=== PATIENT | male | born 1935 | race Caucasian/White ===

== ENCOUNTER → 2016-08-14 | Outpatient (CLI) | payer MEDICARE, BC | END | disposition home or self-care (01) | LOC: MW.CHUR 13:18 | PROVIDERS: ATTEND Urology | DX: N40.0 Benign prostatic hyperplasia without lower urinary tract symptoms (principal); N42.9 Disorder of prostate, unspecified; R97.20 Elevated prostate specific antigen [PSA] | CPT/HCPCS: 36415; 84153; G0463 ==

== ENCOUNTER 2016-09-18 11:36 | Inpatient (IN) | payer MEDICARE, BC ==
[2016-09-18] MEDS ORDERED: Sodium Chloride 0.9% 1,000 ML IV ONE (12:17)
--- NOTE | 2016-09-18 12:17 | EDM.PDOC ---
ED HPI GENERAL MEDICAL PROBLEM - General Chief Complaint: Gastrointestinal Problem Stated Complaint: WEAK Time Seen by Provider: 09/18/16 12:00 Source of Information: Reports: Patient History Limitations: Reports: No limitations - History of Present Illness INITIAL COMMENTS - FREE TEXT/NARRATIVE: History of present illness: [81-year-old male presenting with complaints of generalized weakness, and dark tarry stools patient indicated he been constant for several days and now when he had a stool it was very dark and he is concerned.] Review of systems: As per history of present illness and below otherwise all systems reviewed and negative. Past medical history: As per history of present illness and as reviewed below otherwise noncontributory. Surgical history: As per history of present illness and as reviewed below otherwise noncontributory. Social history: No reported history of drug or alcohol abuse. Family history: As per history of present illness and as reviewed below otherwise noncontributory. Physical exam: HEENT: Atraumatic, normocephalic, pupils reactive, negative for conjunctival pallor or scleral icterus, mucous membranes moist, throat clear, neck supple, nontender, trachea midline. Lungs: Clear to auscultation, breath sounds equal bilaterally, chest nontender. Heart: S1S2, regular, negative for clicks, rubs, or JVD. Abdomen: Soft, nondistended, nontender. Negative for masses or hepatosplenomegaly. Negative for costovertebral tenderness. Pelvis: Stable nontender. Genitourinary: Deferred. Rectal: Deferred. Extremities: Atraumatic, negative for cords or calf pain. Neurovascular unremarkable. Neuro: Awake, alert, oriented. Cranial nerves II through XII unremarkable. Cerebellum unremarkable. Motor and sensory unremarkable throughout. Exam nonfocal. Patients overall assessment appears benign save for a feeling of fatigue and global weakness. Rectal exam at bedside Guiac HEME positive Diagnostics: [CBC, CMP, INR, guaiac at bedside, EKG, chest x-ray] Therapeutics: [IV fluid, type for 2 units, protonic IV push, protonic] Impression: [GI bleed] Plan: [Admit to ICU to with consult to Dr. Fortune] Definitive disposition and diagnosis as appropriate pending reevaluation and review of above. - Related Data Allergies Allergy/AdvReac Type Severity Reaction Status Date / Time No Known Allergies Allergy Verified 09/18/16 11:44 Home Meds: Home Meds Aspirin [Adult Low Dose Aspirin EC] 81 mg PO DAILY 10/24/13 [History] Clopidogrel [Plavix] 75 mg PO DAILY 10/24/13 [History] Folic Acid 1 mg PO DAILY 10/24/13 [History] Hydrochlorothiazide 25 mg PO BEDTIME 10/24/13 [History] Ramipril [Altace] 5 mg PO BEDTIME 10/24/13 [History] atorvaSTATin [Lipitor] 20 mg PO BEDTIME 10/24/13 [History] Levothyroxine [Synthroid] 5 mg PO ACBRK 03/22/14 [History] Potassium Chloride 20 meq PO BRK 06/21/14 [History] Past Medical History Other HEENT History: pat hearing aids, wears glasses Cardiovascular History: Reports: High cholesterol, Hypertension Other Dermatologic History: occasional rash - Infectious Disease History Infectious Disease History: Reports: Chicken pox, Measles - Past Surgical History Male Surgical History: Reports: Prostatectomy Other Male Surgeries/Procedures: hx ureterostomy for insertion of stent Other Musculoskeletal Surgeries/Procedures:: hx foot surgery Social & Family History - Family History Family Medical History: Noncontributory - Tobacco Use Smoking Status *Q: Light Tobacco Smoker Years of Tobacco use: 60 Packs/Tins Daily: 0.5 - Alcohol Use Days Per Week of Alcohol Use: 0 Number of Drinks Per Day: 0 Total Drinks Per Week: 0 - Recreational Drug Use Recreational Drug Use: No Drug Use in Last 12 Months: No ED ROS GENERAL - Review of Systems Review Of Systems: See Below (See history of present illness) ED EXAM, GENERAL - Physical Exam Exam: See Below (See history of present illness) Course - Vital Signs Last Recorded V/S: Last Vital Signs Temp 36.7 C 09/18/16 11:46 Pulse 86 09/18/16 12:55 Resp 16 09/18/16 12:55 BP 118/59 L 09/18/16 12:55 Pulse Ox 96 09/18/16 12:55 - Orders/Labs/Meds Orders: Active Orders 24 hr Category Date Time Status Patient Status [ADT] Stat ADT 09/18/16 13:31 Ordered EKG 12 Lead [EKG Documentation Completion] [RC] STAT Care 09/18/16 12:49 Active INR,PT,PROTHROMBIN TIME [COAG] Stat Lab 09/18/16 13:31 Ordered RED BLOOD CELLS LP [BBK] Stat Lab 09/18/16 12:50 Ordered TYPE AND SCREEN [BBK] Stat Lab 09/18/16 12:27 Received UA W/MICROSCOPIC [URIN] Stat Lab 09/18/16 12:17 Uncollected Pantoprazole [ProTONIX IV] 80 mg Med 09/18/16 13:30 Ordered Sodium Chloride 0.9% [Normal Saline] 100 ml IV .Continuous Medication Orders Pantoprazole Sodium 80 mg/ (Sodium Chloride) 100 mls @ 10 mls/hr IV .Continuous TIM Labs: Laboratory Tests 09/18/16 09/18/16 Range/Units 12:22 12:27 WBC 6.33 (4.0-11.0) K/uL RBC 1.85 L (4.50-5.90) M/uL Hgb 5.4 L (13.0-17.0) g/dL Hct 17.0 L (38.0-50.0) % MCV 91.9 (80.0-98.0) fL MCH 29.2 (27.0-32.0) pg MCHC 31.8 (31.0-37.0) g/dL RDW Std Deviation 51.5 (28.0-62.0) fl RDW Coeff of Madeline 16 H (11.0-15.0) % Plt Count 265 (150-400) K/uL MPV 8.10 (7.40-12.00) fL Neut % (Auto) 72.5 (48.0-80.0) % Lymph % (Auto) 15.6 L (16.0-40.0) % Coles % (Auto) 9.5 (0.0-15.0) % Eos % (Auto) 1.9 (0.0-7.0) % Baso % (Auto) 0.5 (0.0-1.5) % Neut # (Auto) 4.6 (1.4-5.7) K/uL Lymph # (Auto) 1.0 (0.6-2.4) K/uL Coles # (Auto) 0.6 (0.0-0.8) K/uL Eos # (Auto) 0.1 (0.0-0.7) K/uL Baso # (Auto) 0.0 (0.0-0.1) K/uL Nucleated RBC % 0.0 /100WBC Nucleated RBCs # 0 K/uL Sodium 136 (136-146) mmol/L Potassium 3.5 (3.5-5.1) mmol/L Chloride 104 (98-110) mmol/L Carbon Dioxide 23 (21-31) mmol/L BUN 19 (6.0-23.0) mg/dL Creatinine 1.0 (0.6-1.5) mg/dL Est Cr Clr Drug Dosing 52.28 mL/min Estimated GFR (MDRD) > 60.0 ml/min Glucose 93 (60-110) mg/dL Calcium 8.4 L (8.8-10.8) mg/dL Total Bilirubin 0.3 (0.1-1.5) mg/dL AST 14 (5-40) IU/L ALT 14 (8-54) IU/L Alkaline Phosphatase 70 (40-150) Total Protein 5.9 L (6.0-8.0) g/dL Albumin 3.6 (3.4-4.8) g/dL Globulin 2.3 (2.0-3.5) g/dL Albumin/Globulin Ratio 1.6 (1.3-2.8) Amylase 77 (10-90) U/L Lipase 62 (7-80) U/L Meds: Medications Generic Name Dose Route Start Last Admin Trade Name Freq PRN Reason Stop Dose Admin Pantoprazole Sodium 80 mg/ 100 mls @ 10 mls/hr 09/18/16 13:30 Sodium Chloride IV .Continuous TIM Discontinued Medications Generic Name Dose Route Start Last Admin Trade Name Freq PRN Reason Stop Dose Admin Sodium Chloride 1,000 mls @ 999 mls/hr 09/18/16 12:17 09/18/16 12:55 Normal Saline IV 09/18/16 13:17 750 mls/hr .Bolus ONE Administration Pantoprazole Sodium 40 mg/ 10 mls @ 300 mls/hr 09/18/16 13:30 Sodium Chloride IVPUSH 09/18/16 13:31 NOW ONE Departure - Departure Time of Disposition: 13:37 Disposition: Admitted As Inpatient 66 Condition: good Clinical Impression: Bleeding Forms: ED Department Discharge - My Orders Last 24 Hours: My Active Orders 09/18/16 12:17 UA W/MICROSCOPIC [URIN] Stat 09/18/16 12:27 TYPE AND SCREEN [BBK] Stat 09/18/16 12:50 RED BLOOD CELLS LP [BBK] Stat 09/18/16 13:30 Pantoprazole [ProTONIX IV] 80 mg Sodium Chloride 0.9% [Normal Saline] 100 ml IV .Continuous 09/18/16 13:31 Patient Status [ADT] Stat INR,PT,PROTHROMBIN TIME [COAG] Stat - Assessment/Plan Last 24 Hours: My Active Orders 09/18/16 12:17 UA W/MICROSCOPIC [URIN] Stat 09/18/16 12:27 TYPE AND SCREEN [BBK] Stat 09/18/16 12:50 RED BLOOD CELLS LP [BBK] Stat 09/18/16 13:30 Pantoprazole [ProTONIX IV] 80 mg Sodium Chloride 0.9% [Normal Saline] 100 ml IV .Continuous 09/18/16 13:31 Patient Status [ADT] Stat INR,PT,PROTHROMBIN TIME [COAG] Stat
[2016-09-18 13:03] LABS: CHLORIDE,CL 104 mmol/L (98-110); SODIUM,NA 136 mmol/L (136-146)
[2016-09-18] MEDS ORDERED: Pantoprazole 40 MG in Sodium Chloride 0.9% 10 ML IVPUSH ONE (13:30)
[2016-09-18] MEDS ORDERED: Pantoprazole 80 MG in Sodium Chloride 0.9% 100 ML IV SCH (13:30)
--- NOTE | 2016-09-18 14:20 | PCM.HP ---
H&P History of Present Illness - General Date of Service: 09/18/16 Admit Problem/Dx: Admission Diagnosis/Problem Admission Diagnosis/Problem Gastrointestinal hemorrhage Source of Information: Patient, Family, Provider, RN - History of Present Illness Initial Comments - Free Text/Narative: Gentleman presented to the emergency department he does of about 10 days of progressive weakness. He's felt a little short of breath. During this time he also noted that his stool was black. He did not have any abdominal pain. He thought he was constipated. He took a laxative and had 2 bowel movements this morning. He still felt very weak. He has no known history of prior gastrointestinal bleeding. He's never had any type of cancer to his knowledge. 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 He states he's had no recurrence of neurologic deficit since that time. He states his "mini stroke" was characterized by transient problems with memory. - Related Data Allergies/Adverse Reactions: Allergies Allergy/AdvReac Type Severity Reaction Status Date / Time No Known Allergies Allergy Verified 09/18/16 11:44 Home Medications: Home Meds Aspirin [Adult Low Dose Aspirin EC] 81 mg PO DAILY 10/24/13 [History] Clopidogrel [Plavix] 75 mg PO DAILY 10/24/13 [History] Folic Acid 1 mg PO DAILY 10/24/13 [History] Hydrochlorothiazide 25 mg PO BEDTIME 10/24/13 [History] Ramipril [Altace] 5 mg PO BEDTIME 10/24/13 [History] atorvaSTATin [Lipitor] 20 mg PO BEDTIME 10/24/13 [History] Levothyroxine [Synthroid] 5 mg PO ACBRK 03/22/14 [History] Potassium Chloride 20 meq PO BRK 06/21/14 [History] Past Medical History Other HEENT History: pat hearing aids, wears glasses Cardiovascular History: Reports: High cholesterol, Hypertension. Denies: Afib, Angina, CAD, Heart Failure, [place], Prior cardiac arrest, PTCA, Stents Respiratory History: Denies: COPD Gastrointestinal History: Denies: Cirrhosis Genitourinary History: Reports: Prostate disorder, Renal calculus Neurological History: Reports: TIA Endocrine/Metabolic History: Denies: Judson's disease, Diabetes, type I, Diabetes, type II Hematologic History: Denies: Anemia Oncologic (Cancer) History: Reports: None Other Dermatologic History: occasional rash - Infectious Disease History Infectious Disease History: Reports: Chicken pox, Measles - Past Surgical History Male Surgical History: Reports: Prostatectomy Other Male Surgeries/Procedures: hx ureterostomy for insertion of stent Other Musculoskeletal Surgeries/Procedures:: hx foot surgery Social & Family History - Family History Family Medical History: Noncontributory - Tobacco Use Tobacco Use Within Last Twelve Months: Smokeless Tobacco Years of Tobacco use: 60 Packs/Tins Daily: 0.5 - Alcohol Use Days Per Week of Alcohol Use: 0 Number of Drinks Per Day: 0 Total Drinks Per Week: 0 Alcohol Use in Last Twelve Months: No - Recreational Drug Use Recreational Drug Use: No Drug Use in Last 12 Months: No H&P Review of Systems - Review of Systems: Review Of Systems: See Below General: Reports: weakness, fatigue. Denies: fever, chills HEENT: Denies: dysphasia Pulmonary: Reports: Shortness of Breath. Denies: Wheezing, Cough, Sputum Cardiovascular: Denies: chest pain, edema Gastrointestinal: Reports: Black stool, Melena. Denies: Abdominal pain, Anorexia, Bloody stool, Hematemesis, Hematochezia, Vomiting Genitourinary: Denies: dysuria, hematuria Skin: Denies: cyanosis Neurological: Denies: Pre-Existing Deficit, Seizure Immunologic: Denies: anaphylaxis Exam - Exam Exam: See Below - Vital Signs Vital Signs: Last Vital Signs Temp 98.0 F 09/18/16 11:46 Pulse 86 09/18/16 12:55 Resp 16 09/18/16 12:55 BP 118/59 L 09/18/16 12:55 Pulse Ox 96 09/18/16 12:55 Weight: 83.915 kg - Exam General: alert, oriented, cooperative. No: mild distress, moderate distress HEENT: Other (Pale conjunctiva) Neck: supple, trachea midline Lungs: Clear to auscultation, Normal respiratory effort. No: Crackles, Rales, Rhonchi Cardiovascular: regular rate, regular rhythm, normal S2, systolic murmur Abdomen: soft. No: tenderness Rectal (Males) Exam: Other (Rectal exam by emergency room provide your revealed heme positive stool and no anal or perirectal masses.) Extremities: No: edema Neurological: cranial nerves intact, normal speech Neuro Extensive - Mental Status: normal cognition Psychiatric: normal mood. No: agitated - Patient Data Lab Results last 24 hrs: Laboratory Results - last 24 hr 09/18/16 09/18/16 09/18/16 Range/Units 12:22 12:27 12:27 WBC 6.33 (4.0-11.0) K/uL RBC 1.85 L (4.50-5.90) M/uL Hgb 5.4 L (13.0-17.0) g/dL Hct 17.0 L (38.0-50.0) % MCV 91.9 (80.0-98.0) fL MCH 29.2 (27.0-32.0) pg MCHC 31.8 (31.0-37.0) g/dL RDW Std Deviation 51.5 (28.0-62.0) fl RDW Coeff of Madeline 16 H (11.0-15.0) % Plt Count 265 (150-400) K/uL MPV 8.10 (7.40-12.00) fL Neut % (Auto) 72.5 (48.0-80.0) % Lymph % (Auto) 15.6 L (16.0-40.0) % Jennings % (Auto) 9.5 (0.0-15.0) % Eos % (Auto) 1.9 (0.0-7.0) % Baso % (Auto) 0.5 (0.0-1.5) % Neut # (Auto) 4.6 (1.4-5.7) K/uL Lymph # (Auto) 1.0 (0.6-2.4) K/uL Jennings # (Auto) 0.6 (0.0-0.8) K/uL Eos # (Auto) 0.1 (0.0-0.7) K/uL Baso # (Auto) 0.0 (0.0-0.1) K/uL Nucleated RBC % 0.0 /100WBC Nucleated RBCs # 0 K/uL INR (0.86-1.11) Sodium 136 (136-146) mmol/L Potassium 3.5 (3.5-5.1) mmol/L Chloride 104 (98-110) mmol/L Carbon Dioxide 23 (21-31) mmol/L BUN 19 (6.0-23.0) mg/dL Creatinine 1.0 (0.6-1.5) mg/dL Est Cr Clr Drug Dosing 52.28 mL/min Estimated GFR (MDRD) > 60.0 ml/min Glucose 93 (60-110) mg/dL Calcium 8.4 L (8.8-10.8) mg/dL Total Bilirubin 0.3 (0.1-1.5) mg/dL AST 14 (5-40) IU/L ALT 14 (8-54) IU/L Alkaline Phosphatase 70 (40-150) Total Protein 5.9 L (6.0-8.0) g/dL Albumin 3.6 (3.4-4.8) g/dL Globulin 2.3 (2.0-3.5) g/dL Albumin/Globulin Ratio 1.6 (1.3-2.8) Amylase 77 (10-90) U/L Lipase 62 (7-80) U/L Blood Type O POSITIVE Antibody Screen NEGATIVE Crossmatch See Detail 09/18/16 Range/Units 12:27 WBC (4.0-11.0) K/uL RBC (4.50-5.90) M/uL Hgb (13.0-17.0) g/dL Hct (38.0-50.0) % MCV (80.0-98.0) fL MCH (27.0-32.0) pg MCHC (31.0-37.0) g/dL RDW Std Deviation (28.0-62.0) fl RDW Coeff of Madeline (11.0-15.0) % Plt Count (150-400) K/uL MPV (7.40-12.00) fL Neut % (Auto) (48.0-80.0) % Lymph % (Auto) (16.0-40.0) % Jennings % (Auto) (0.0-15.0) % Eos % (Auto) (0.0-7.0) % Baso % (Auto) (0.0-1.5) % Neut # (Auto) (1.4-5.7) K/uL Lymph # (Auto) (0.6-2.4) K/uL Jennings # (Auto) (0.0-0.8) K/uL Eos # (Auto) (0.0-0.7) K/uL Baso # (Auto) (0.0-0.1) K/uL Nucleated RBC % /100WBC Nucleated RBCs # K/uL INR 0.99 (0.86-1.11) Sodium (136-146) mmol/L Potassium (3.5-5.1) mmol/L Chloride (98-110) mmol/L Carbon Dioxide (21-31) mmol/L BUN (6.0-23.0) mg/dL Creatinine (0.6-1.5) mg/dL Est Cr Clr Drug Dosing mL/min Estimated GFR (MDRD) ml/min Glucose (60-110) mg/dL Calcium (8.8-10.8) mg/dL Total Bilirubin (0.1-1.5) mg/dL AST (5-40) IU/L ALT (8-54) IU/L Alkaline Phosphatase (40-150) Total Protein (6.0-8.0) g/dL Albumin (3.4-4.8) g/dL Globulin (2.0-3.5) g/dL Albumin/Globulin Ratio (1.3-2.8) Amylase (10-90) U/L Lipase (7-80) U/L Blood Type Antibody Screen Crossmatch Result Diagrams: 09/18/16 12:27 09/18/16 12:22 *Q Meaningful Use (ADM) - VTE *Q VTE Criteria *Q: - Stroke *Q Stroke Criteria *Q: - AMI *Q AMI Criteria *Q: Problem List Initiated/Reviewed/Updated: Yes Orders Last 24hrs: Active Orders 24 hr Category Date Time Status Patient Status [ADT] Stat ADT 09/18/16 13:31 Active EKG 12 Lead [EKG Documentation Completion] [RC] STAT Care 09/18/16 12:49 Active Chest 2V [CR] Stat Exams 09/18/16 13:35 Ordered RED BLOOD CELLS LP [BBK] Stat Lab 09/18/16 12:27 Results TYPE AND SCREEN [BBK] Stat Lab 09/18/16 12:27 Results UA W/MICROSCOPIC [URIN] Stat Lab 09/18/16 12:17 Uncollected Pantoprazole [ProTONIX IV] 80 mg Med 09/18/16 13:30 Active Sodium Chloride 0.9% [Normal Saline] 100 ml IV .Continuous Transfuse RBC [Transfuse Red Blood Cells] [COMM] Stat Oth 09/18/16 13:44 Ordered Medication Orders Pantoprazole Sodium 80 mg/ (Sodium Chloride) 100 mls @ 10 mls/hr IV .Continuous TIM Assessment/Plan Comment:: Melena with symptomatic anemia. Will admit to intensive care unit and transfuse. Emergency room staff advised me that general surgery has been consulted through the emergency department.
[2016-09-18] MEDS ORDERED: Bisacodyl 5 MG Tab PO PRN (14:35)
[2016-09-18] MEDS ORDERED: Morphine 2 MG/ML Syringe IVPUSH PRN (14:35)
[2016-09-18] MEDS ORDERED: Acetaminophen 325 MG Tab PO PRN (14:35)
[2016-09-18] MEDS ORDERED: Ondansetron 4 MG Tab.DIS PO PRN (14:35)
[2016-09-18] MEDS ORDERED: Temazepam 15 MG Cap PO PRN (14:35)
[2016-09-18] MEDS ORDERED: Furosemide 40 MG/4 ML VIAL IVPUSH ONE (14:44)
[2016-09-18] MEDS: Pantoprazole 80 MG in Sodium Chloride 0.9% 100 ML IV SCH (15:42)
--- NOTE | 2016-09-18 16:20 | PCM.SN ---
- Free Text/Narrative Note: Sorin barrios requests surgery consultation either with Dr. Castro or Dr. Huang. I spoke with Dr. Rossi by phone she is on vacation presently Dr. Castro is etl application developer tomorrow. I spoke with Dr. Fortune who I consulted originally and advised her that I would be consulting Dr. Castro, as per family request, in the morning.
--- NOTE | 2016-09-18 16:44 | CR ---
EXAM DATE: 09/18/16 PATIENT'S AGE: 81 Patient: FLY NATH Facility: [place], [place] Site . Site : [id number] Study: XRay Chest [id number]/30/2017 3:06:18 PM Ordering Physician: Doctor Gonzalse Final Report: INDICATION: PAIN,SOB 2 View Chest. Findings: The lungs are clear. Pulmonary vascularity, mediastinum and cardiac silhouette are within normal limits. No effusions and no pneumothorax. Osseous structures appear unremarkable. Impression: No evidence of acute cardiopulmonary disease. Dictated by: Isael Hernandez MD @ 09/18/2016 15:15:10 (Electronic Signature) Report Signed by Proxy and Original Signed Document filed in the Medical Record. MTDD
[2016-09-18] MEDS: atorvaSTATin 20 MG Tab PO SCH (21:29)
[2016-09-18] MEDS: Docusate Sodium 100 MG Cap PO SCH (21:29)
[2016-09-19] MEDS: Pantoprazole 80 MG in Sodium Chloride 0.9% 100 ML IV SCH ×3 (01:02→21:28)
[2016-09-19 05:59] LABS: CHLORIDE,CL 106 mmol/L (98-110); SODIUM,NA 139 mmol/L (136-146)
[2016-09-19] MEDS: Levothyroxine 75 MCG Tab PO SCH (06:31)
[2016-09-19] MEDS ORDERED: Calcium Carbonate 500 MG Tab.Chew PO ONE (08:00)
[2016-09-19] MEDS: Docusate Sodium 100 MG Cap PO SCH ×2 (09:19→20:32)
[2016-09-19] MEDS: Levofloxacin/Dextrose 5%-Water 500 MG in Premix Bag 1 BAG IV SCH (09:19)
[2016-09-19] MEDS: Folic Acid 1 MG Tab PO SCH (09:19)
--- NOTE | 2016-09-19 11:47 | PCM.PN ---
[id number] Dx/Problem (Free Text): Admission Diagnosis/Problem Admission Diagnosis/Problem Gastrointestinal hemorrhage Subjective Update: Patient feeling more energy today. No pain, breathing well. No diarrhea or loose stools. Some constipation. Eating well. No urinary retention. Does admit to history of kidney stones in the past after reminds him. Functional Status: Reports: pain controlled, tolerating diet, incentive spirometry - Review of Systems General: Reports: Weakness, Fatigue. Denies: Fever, Malaise, Chills HEENT: Denies: sinus congestion Pulmonary: Denies: shortness of breath, pleuritic chest pain, wheezing Cardiovascular: Denies: Chest Pain, Palpitations, Edema Gastrointestinal: Reports: Constipation. Denies: Abdominal pain Genitourinary: Denies: dysuria, hematuria, flank pain Musculoskeletal: Denies: neck pain, leg pain Skin: Denies: cyanosis Neurological: Denies: Confusion, Dizziness, Headache Psychiatric: Denies: confusion - Patient Data Vitals - most recent: Last Vital Signs Temp 37.1 C 09/19/16 08:00 Pulse 74 09/19/16 09:00 Resp 18 09/19/16 11:00 BP 124/55 L 09/19/16 11:00 Pulse Ox 97 09/19/16 11:00 Weight - most recent: 83.6 kg I&O - last 24 hours: Intake & Output 09/18/16 09/19/16 09/19/16 22:59 06:59 14:59 Intake Total 260 1536 Output Total 2650 Balance 260 -1114 Lab Results last 24 hrs: Laboratory Results - last 24 hr 09/18/16 09/18/16 09/19/16 Range/Units 17:20 21:59 05:18 WBC 6.39 5.79 (4.0-11.0) K/uL RBC 2.52 L 2.60 L (4.50-5.90) M/uL Hgb 7.3 L 7.5 L (13.0-17.0) g/dL Hct 22.4 L 23.3 L (38.0-50.0) % MCV 88.9 89.6 (80.0-98.0) fL MCH 29.0 28.8 (27.0-32.0) pg MCHC 32.6 32.2 (31.0-37.0) g/dL RDW Std Deviation 50.3 50.5 (28.0-62.0) fl RDW Coeff of Madeline 16 H 16 H (11.0-15.0) % Plt Count 255 244 (150-400) K/uL MPV 8.50 8.60 (7.40-12.00) fL Neut % (Auto) 65.0 (48.0-80.0) % Lymph % (Auto) 21.6 (16.0-40.0) % [place] % (Auto) 7.1 (0.0-15.0) % Eos % (Auto) 5.4 (0.0-7.0) % Baso % (Auto) 0.9 (0.0-1.5) % Neut # (Auto) 3.8 (1.4-5.7) K/uL Lymph # (Auto) 1.3 (0.6-2.4) K/uL [place] # (Auto) 0.4 (0.0-0.8) K/uL Eos # (Auto) 0.3 (0.0-0.7) K/uL Baso # (Auto) 0.1 (0.0-0.1) K/uL Nucleated RBC % 0.0 0.0 /100WBC Nucleated RBCs # 0 0 K/uL Sodium (136-146) mmol/L Potassium (3.5-5.1) mmol/L Chloride (98-110) mmol/L Carbon Dioxide (21-31) mmol/L BUN (6.0-23.0) mg/dL Creatinine (0.6-1.5) mg/dL Est Cr Clr Drug Dosing mL/min Estimated GFR (MDRD) ml/min Glucose (60-110) mg/dL Calcium (8.8-10.8) mg/dL Magnesium (1.5-2.3) mEq/L Urine Color YELLOW Urine Appearance SLT CLOUDY Urine pH 7.0 (5.0-8.0) Ur Specific Oral 1.010 (1.001-1.035) Urine Protein NEGATIVE (NEGATIVE) mg/dL Urine Glucose (UA) NEGATIVE (NEGATIVE) mg/dL Urine Ketones NEGATIVE (NEGATIVE) mg/dL Urine Occult Blood MODERATE (NEGATIVE) Urine Nitrite NEGATIVE (NEGATIVE) Urine Bilirubin NEGATIVE (NEGATIVE) Urine Urobilinogen 0.2 (<2.0) EU/dL Ur Leukocyte Esterase MODERATE (NEGATIVE) Urine RBC 8-12 (0-2/HPF) Urine WBC 5-10 (0-5/HPF) Ur Epithelial Cells FEW (NONE-FEW) Amorphous Sediment MODERATE (NEGATIVE) Urine Bacteria FEW (NEGATIVE) 09/19/16 Range/Units 05:30 WBC (4.0-11.0) K/uL RBC (4.50-5.90) M/uL Hgb (13.0-17.0) g/dL Hct (38.0-50.0) % MCV (80.0-98.0) fL MCH (27.0-32.0) pg MCHC (31.0-37.0) g/dL RDW Std Deviation (28.0-62.0) fl RDW Coeff of Madeline (11.0-15.0) % Plt Count (150-400) K/uL MPV (7.40-12.00) fL Neut % (Auto) (48.0-80.0) % Lymph % (Auto) (16.0-40.0) % [place] % (Auto) (0.0-15.0) % Eos % (Auto) (0.0-7.0) % Baso % (Auto) (0.0-1.5) % Neut # (Auto) (1.4-5.7) K/uL Lymph # (Auto) (0.6-2.4) K/uL [place] # (Auto) (0.0-0.8) K/uL Eos # (Auto) (0.0-0.7) K/uL Baso # (Auto) (0.0-0.1) K/uL Nucleated RBC % /100WBC Nucleated RBCs # K/uL Sodium 139 (136-146) mmol/L Potassium 3.9 (3.5-5.1) mmol/L Chloride 106 (98-110) mmol/L Carbon Dioxide 23 (21-31) mmol/L BUN 16 (6.0-23.0) mg/dL Creatinine 1.1 (0.6-1.5) mg/dL Est Cr Clr Drug Dosing 49.12 mL/min Estimated GFR (MDRD) > 60.0 ml/min Glucose 118 H (60-110) mg/dL Calcium 8.2 L (8.8-10.8) mg/dL Magnesium 1.8 (1.5-2.3) mEq/L Urine Color Urine Appearance Urine pH (5.0-8.0) Ur Specific Oral (1.001-1.035) Urine Protein (NEGATIVE) mg/dL Urine Glucose (UA) (NEGATIVE) mg/dL Urine Ketones (NEGATIVE) mg/dL Urine Occult Blood (NEGATIVE) Urine Nitrite (NEGATIVE) Urine Bilirubin (NEGATIVE) Urine Urobilinogen (<2.0) EU/dL Ur Leukocyte Esterase (NEGATIVE) Urine RBC (0-2/HPF) Urine WBC (0-5/HPF) Ur Epithelial Cells (NONE-FEW) Amorphous Sediment (NEGATIVE) Urine Bacteria (NEGATIVE) Med Orders - Current: Current Medications Acetaminophen (Tylenol) 650 mg PO Q4H PRN PRN Reason: Pain (Mild 1-3)/fever Atorvastatin Calcium (Lipitor) 20 mg PO BEDTIME [facility] Last Admin: 09/18/16 21:29 Dose: 20 mg Bisacodyl (Dulcolax) 5 mg PO DAILY PRN PRN Reason: Constipation Docusate Sodium (Colace) 100 mg PO BID [facility] Last Admin: 09/19/16 09:19 Dose: 100 mg Folic Acid (Folic Acid) 1 mg PO DAILY [facility] Last Admin: 09/19/16 09:19 Dose: 1 mg Pantoprazole Sodium 80 mg/ (Sodium Chloride) 100 mls @ 10 mls/hr IV Q10H [facility] Last Admin: 09/19/16 01:02 Dose: 10 mls/hr Levofloxacin/Dextrose 500 mg/ (Premix) 100 mls @ 100 mls/hr IV Q24H [facility] Last Admin: 09/19/16 09:19 Dose: 100 mls/hr Levothyroxine Sodium (Levothyroxine) 75 mcg PO ACBRK [facility] Last Admin: 09/19/16 06:31 Dose: 75 mcg Morphine Sulfate (Morphine) 2 mg IVPUSH Q2H PRN PRN Reason: Pain (severe 7-10) Stop: 09/19/16 14:40 Ondansetron HCl (Zofran Odt) 4 mg PO Q4H PRN PRN Reason: nausea, able to take PO Temazepam (Restoril) 15 mg PO BEDTIME PRN PRN Reason: Sleep Discontinued Medications Calcium Carbonate/Glycine (Tums) 1,000 mg PO DAILY ONE Stop: 09/19/16 08:01 Last Admin: 09/19/16 09:19 Dose: 1,000 mg Furosemide (Lasix) 40 mg IVPUSH ONCALL ONE Stop: 09/18/16 14:45 Last Admin: 09/18/16 16:59 Dose: 40 mg Sodium Chloride (Normal Saline) 1,000 mls @ 999 mls/hr IV .Bolus ONE Stop: 09/18/16 13:17 Last Admin: 09/18/16 12:55 Dose: 750 mls/hr Pantoprazole Sodium 40 mg/ (Sodium Chloride) 10 mls @ 300 mls/hr IVPUSH NOW ONE Stop: 09/18/16 13:31 Last Admin: 09/18/16 15:30 Dose: 300 mls/hr Pantoprazole Sodium 80 mg/ (Sodium Chloride) 100 mls @ 10 mls/hr IV .Continuous TIM - Exam Quality Assessment: DVT prophylaxis General: alert, oriented, cooperative, no acute distress HEENT: Pupils equal, Pupils reactive, EOMI, Mucous membr. moist/pink Neck: supple, trachea midline Lungs: Clear to auscultation, Normal respiratory effort Cardiovascular: Regular Rate, Regular Rhythm Abdomen: bowel sounds present, soft, no tenderness, no distension, CVA tenderness (right) Back Exam: normal inspection, full range of motion, CVA tenderness (R) Extremities: no edema, normal pulses, no tenderness/swelling, no calf tenderness Peripheral Pulses: 2+: radial (L), radial (R), posterior tibial (L), posterior tibial (R), dorsalis pedis (L), dorsalis pedis (R) Skin: warm, dry, intact Neurological: no new focal deficit Psy/Mental Status: alert, normal affect, normal mood - Problem List & Annotations (1) GI bleed requiring more than 4 units of blood in 24 hours, ICU, or surgery SNOMED Code(s): 51557605 Code(s): K92.2 - GASTROINTESTINAL HEMORRHAGE, UNSPECIFIED Status: Acute Priority: High (2) UTI (urinary tract infection) SNOMED Code(s): 07794624 Code(s): N39.0 - URINARY TRACT INFECTION, SITE NOT SPECIFIED Status: Acute Priority: High Qualifiers: Urinary tract infection type: acute cystitis Hematuria presence: without hematuria Qualified Code(s): N30.00 - Acute cystitis without hematuria - Problem List Review Problem List Initiated/Reviewed/Updated: Yes - My Orders Last 24 Hours: My Active Orders 09/19/16 08:00 Levofloxacin/Dextrose 5%-Water [Levaquin in D5W 500 MG/100 ML] 500 mg Premix Bag 1 bag IV Q24H 09/19/16 10:26 RED BLOOD CELLS LP [BBK] Routine 09/19/16 10:27 Transfuse PRBC [Transfuse Red Blood Cells] [COMM] Routine 09/19/16 10:37 Abdomen Pelvis wo Cont [CT] Routine 09/19/16 10:38 Transfer Patient (Change bed) [ADT] Routine - Plan Plan:: 81 male admitted 09/18/16 for GI bleed with Hgb of 5.5 with pmh of TIA on Plavix and aspirin, htn, hyperlipidemia, and hypothyroidism. GI bleed\Anemia: Hx of Melena for two days previous to admission. No BM overnight, feeling constipated. Transfused 2 units yesterday with good response Hgb 5.5 to 7.5. Still light headed will transfuse 2 more units this AM. On Protonix IV will cont. H-pylori was negative. Dr. Castro, surgery, called and consulted. Do not believe he has an active bleed at this time. Will cont. to monitor. UTI: UA was positive. He did have some right flank pain on physical this am. reports history of kidney stones. Started patient on Levaqin IV and will get CT abd/pelvis for possible stones. Hx of TIA: On plavix and aspirin which will be cont. secondary to high risk and no active bleeding. Hyperlipidemia: Stable Cont. home meds. Hypothyroidism: Stable cont. home meds. Will transfer to floor from ICU as patient has stabilized. VTE: On plavix and aspirin, GI bleed, SCD hold pharmacologic therapy. . <Naveen Aragon O - Last Filed: 09/22/16 14:24> - Patient Data Vitals - most recent: Last Vital Signs Temp 36.9 C 09/21/16 12:00 Pulse 69 09/21/16 12:00 Resp 12 09/21/16 12:00 BP 130/60 09/21/16 12:00 Pulse Ox 95 09/21/16 14:00 I&O - last 24 hours: Intake & Output 09/21/16 09/22/16 09/22/16 22:59 06:59 14:59 Intake Total 3275 Output Total 1570 Balance 1705 Med Orders - Current: Current Medications Discontinued Medications Acetaminophen (Tylenol) 650 mg PO Q4H PRN PRN Reason: Pain (Mild 1-3)/fever Atorvastatin Calcium (Lipitor) 20 mg PO BEDTIME [facility] Last Admin: 09/20/16 20:43 Dose: 20 mg Bisacodyl (Dulcolax) 5 mg PO DAILY PRN PRN Reason: Constipation Calcium Carbonate/Glycine (Tums) 1,000 mg PO DAILY ONE Stop: 09/19/16 08:01 Last Admin: 09/19/16 09:19 Dose: 1,000 mg Docusate Sodium (Colace) 100 mg PO BID [facility] Last Admin: 09/21/16 08:15 Dose: 100 mg Folic Acid (Folic Acid) 1 mg PO DAILY [facility] Last Admin: 09/21/16 08:14 Dose: 1 mg Furosemide (Lasix) 40 mg IVPUSH ONCALL ONE Stop: 09/18/16 14:45 Last Admin: 09/18/16 16:59 Dose: 40 mg Sodium Chloride (Normal Saline) 1,000 mls @ 999 mls/hr IV .Bolus ONE Stop: 09/18/16 13:17 Last Admin: 09/18/16 12:55 Dose: 750 mls/hr Pantoprazole Sodium 40 mg/ (Sodium Chloride) 10 mls @ 300 mls/hr IVPUSH NOW ONE Stop: 09/18/16 13:31 Last Admin: 09/18/16 15:30 Dose: 300 mls/hr Pantoprazole Sodium 80 mg/ (Sodium Chloride) 100 mls @ 10 mls/hr IV .Continuous [facility] Pantoprazole Sodium 80 mg/ (Sodium Chloride) 100 mls @ 10 mls/hr IV Q10H [facility] Last Admin: 09/21/16 13:03 Dose: 10 mls/hr Levofloxacin/Dextrose 500 mg/ (Premix) 100 mls @ 100 mls/hr IV Q24H [facility] Last Admin: 09/21/16 08:14 Dose: 100 mls/hr Levothyroxine Sodium (Levothyroxine) 75 mcg PO ACBRK [facility] Last Admin: 09/21/16 06:43 Dose: 75 mcg Morphine Sulfate (Morphine) 2 mg IVPUSH Q2H PRN PRN Reason: Pain (severe 7-10) Stop: 09/19/16 14:40 Ondansetron HCl (Zofran Odt) 4 mg PO Q4H PRN PRN Reason: nausea, able to take PO Temazepam (Restoril) 15 mg PO BEDTIME PRN PRN Reason: Sleep - My Orders Last 24 Hours: My Active Orders 09/21/16 15:58 Ready for Discharge [RC] PER UNIT ROUTINE - Plan Plan:: I was present with the resident during the history and exam. I discussed the case with the resident and agree with the findings and plan as documented in the resident's note
--- NOTE | 2016-09-19 13:09 | CT ---
CT of the abdomen and pelvis without contrast. HISTORY: CVA tenderness TECHNIQUE: Axial CT images were obtained of the abdomen and pelvis without contrast. Coronal and sag ittal reconstructions obtained. FINDINGS: There is atelectasis and/or scarring within the lung bases. No pleural effusion. The liver, spleen, adrenal glands, and pancreas appear unremarkable for noncontrast examination. The gallbladder appears normal. There is no bulky retroperitoneal lymphadenopathy. No abdominal ascite s. There is a punctate nonobstructing stone within the left kidney. No evidence of obstructive uropathy bilaterally. The large and small bowel are normal in caliber without evidence of obstruction. The appendix appear s normal. There is no bulky pelvic lymphadenopathy. No free fluid. No free air. The urinary bladder appears normal. Moderate prostatomegaly. Degenerative changes are noted within the lumbar spine. IMPRESSION: 1. No acute findings demonstrated within the abdomen or pelvis. 2. Moderate prostatomegaly. 3. Possible punctate nonobstructing left renal stone.
--- NOTE | 2016-09-19 14:07 | PCM.SN ---
<Gerald Issa - Last Filed: 09/19/16 14:06> - Free Text/Narrative Note: CT abdomen/pelvis showed no acute pathology. There was moderate prostamegaly and possible small punctate nonobstructing stone left kidney. <Naveen Aragon - Last Filed: 09/19/16 16:42> - Free Text/Narrative Note: i was present with the resident during the history and exam.I discussed the case with the resident and agree with the findings and plan as documented in the resident's note
--- NOTE | 2016-09-19 14:50 | PCM.CONS ---
H&P History of Present Illness - General Date of Service: 09/19/16 Admit Problem/Dx: Admission Diagnosis/Problem Admission Diagnosis/Problem Gastrointestinal hemorrhage Source of Information: Patient, Family History Limitations: Reports: No limitations - History of Present Illness Onset of Symptoms: Reports: gradual Duration of Symptoms: Reports: Week(s):, Getting worse Location: Reports: abdomen Quality: Reports: Ache, Burning Improves with: Reports: None Worsens with: Reports: None - Related Data Allergies/Adverse Reactions: Allergies Allergy/AdvReac Type Severity Reaction Status Date / Time No Known Allergies Allergy Verified 09/18/16 11:44 Home Medications: Home Meds Aspirin [Adult Low Dose Aspirin EC] 81 mg PO DAILY 10/24/13 [History] Clopidogrel [Plavix] 75 mg PO DAILY 10/24/13 [History] Folic Acid 1 mg PO DAILY 10/24/13 [History] Hydrochlorothiazide 25 mg PO BEDTIME 10/24/13 [History] Ramipril [Altace] 5 mg PO BEDTIME 10/24/13 [History] atorvaSTATin [Lipitor] 20 mg PO BEDTIME 10/24/13 [History] Potassium Chloride 20 meq PO BRK 06/21/14 [History] Levothyroxine 75 mcg PO ACBREAKFAST 09/18/16 [History] Past Medical History Other HEENT History: pat hearing aids, wears glasses Cardiovascular History: Reports: High cholesterol, Hypertension Respiratory History: Denies: COPD Gastrointestinal History: Denies: Cirrhosis Genitourinary History: Reports: Prostate disorder, Renal calculus Neurological History: Reports: TIA Other Neuro History: on plavix for TIAs Endocrine/Metabolic History: Denies: Sibley's disease, Diabetes, type I, Diabetes, type II Hematologic History: Denies: Anemia Oncologic (Cancer) History: Reports: None Other Dermatologic History: occasional rash - Infectious Disease History Infectious Disease History: Reports: Chicken pox, Measles, Shingles - Past Surgical History Male Surgical History: Reports: Prostatectomy Other Male Surgeries/Procedures: hx ureterostomy for insertion of stent Other Musculoskeletal Surgeries/Procedures:: hx foot surgery Social & Family History - Family History Family Medical History: Noncontributory - Tobacco Use Smoking Status *Q: Light Tobacco Smoker Years of Tobacco use: 60 Packs/Tins Daily: 0.2 Second Hand Smoke Exposure: No - Caffeine Use Caffeine Use: Reports: Coffee, Soda - Alcohol Use Days Per Week of Alcohol Use: 0 Number of Drinks Per Day: 0 Total Drinks Per Week: 0 - Recreational Drug Use Recreational Drug Use: No Drug Use in Last 12 Months: No H&P Review of Systems - Review of Systems: Review Of Systems: See Below General: Reports: weakness, fatigue HEENT: Reports: no symptoms Pulmonary: Reports: Shortness of Breath. Denies: Wheezing, Pleuritic Chest Pain , Cough, Sputum, Hemoptysis Cardiovascular: Reports: palpitations. Denies: chest pain, dyspnea on exertion , orthopnea, PND Gastrointestinal: Reports: Abdominal pain, Black stool, Constipation, Melena. Denies: Diarrhea, Decreased appetite Genitourinary: Reports: no symptoms Musculoskeletal: Reports: no symptoms Skin: Reports: no symptoms Psychiatric: Reports: no symptoms Neurological: Reports: No Symptoms Hematologic/Lymphatic: Reports: anemia Immunologic: Reports: no symptoms Exam - Exam Exam: See Below - Vital Signs Vital Signs: Last Vital Signs Temp 98.3 F 09/19/16 14:28 Pulse 78 09/19/16 14:28 Resp 16 09/19/16 14:28 BP 113/58 L 09/19/16 14:28 Pulse Ox 97 09/19/16 11:00 Weight: 184 lb 4.903 oz - Exam Quality Assessment: supplemental oxygen General: alert, oriented, cooperative, mild distress HEENT: Conjunctiva clear, Mucosa moist & pink (pale). No: Scleral icterus Neck: supple, trachea midline, 2+ carotid pulse wo bruit Lungs: Clear to auscultation, Normal respiratory effort Cardiovascular: regular rate, regular rhythm Abdomen: normal bowel sounds, soft. No: organomegaly, peritoneal signs, distention, guarding, rigidity, rebound, tenderness (Male) Exam: No hernia Rectal (Males) Exam: Deferred Back Exam: normal inspection Extremities: normal inspection, normal pulses Skin: warm, dry, intact - Patient Data Lab Results last 24 hrs: Laboratory Results - last 24 hr 09/18/16 09/18/16 09/19/16 Range/Units 17:20 21:59 05:18 WBC 6.39 5.79 (4.0-11.0) K/uL RBC 2.52 L 2.60 L (4.50-5.90) M/uL Hgb 7.3 L 7.5 L (13.0-17.0) g/dL Hct 22.4 L 23.3 L (38.0-50.0) % MCV 88.9 89.6 (80.0-98.0) fL MCH 29.0 28.8 (27.0-32.0) pg MCHC 32.6 32.2 (31.0-37.0) g/dL RDW Std Deviation 50.3 50.5 (28.0-62.0) fl RDW Coeff of Madeline 16 H 16 H (11.0-15.0) % Plt Count 255 244 (150-400) K/uL MPV 8.50 8.60 (7.40-12.00) fL Neut % (Auto) 65.0 (48.0-80.0) % Lymph % (Auto) 21.6 (16.0-40.0) % Schleicher % (Auto) 7.1 (0.0-15.0) % Eos % (Auto) 5.4 (0.0-7.0) % Baso % (Auto) 0.9 (0.0-1.5) % Neut # (Auto) 3.8 (1.4-5.7) K/uL Lymph # (Auto) 1.3 (0.6-2.4) K/uL Schleicher # (Auto) 0.4 (0.0-0.8) K/uL Eos # (Auto) 0.3 (0.0-0.7) K/uL Baso # (Auto) 0.1 (0.0-0.1) K/uL Nucleated RBC % 0.0 0.0 /100WBC Nucleated RBCs # 0 0 K/uL Sodium (136-146) mmol/L Potassium (3.5-5.1) mmol/L Chloride (98-110) mmol/L Carbon Dioxide (21-31) mmol/L BUN (6.0-23.0) mg/dL Creatinine (0.6-1.5) mg/dL Est Cr Clr Drug Dosing mL/min Estimated GFR (MDRD) ml/min Glucose (60-110) mg/dL Calcium (8.8-10.8) mg/dL Magnesium (1.5-2.3) mEq/L Urine Color YELLOW Urine Appearance SLT CLOUDY Urine pH 7.0 (5.0-8.0) Ur Specific [place] 1.010 (1.001-1.035) Urine Protein NEGATIVE (NEGATIVE) mg/dL Urine Glucose (UA) NEGATIVE (NEGATIVE) mg/dL Urine Ketones NEGATIVE (NEGATIVE) mg/dL Urine Occult Blood MODERATE (NEGATIVE) Urine Nitrite NEGATIVE (NEGATIVE) Urine Bilirubin NEGATIVE (NEGATIVE) Urine Urobilinogen 0.2 (<2.0) EU/dL Ur Leukocyte Esterase MODERATE (NEGATIVE) Urine RBC 8-12 (0-2/HPF) Urine WBC 5-10 (0-5/HPF) Ur Epithelial Cells FEW (NONE-FEW) Amorphous Sediment MODERATE (NEGATIVE) Urine Bacteria FEW (NEGATIVE) 09/19/16 Range/Units 05:30 WBC (4.0-11.0) K/uL RBC (4.50-5.90) M/uL Hgb (13.0-17.0) g/dL Hct (38.0-50.0) % MCV (80.0-98.0) fL MCH (27.0-32.0) pg MCHC (31.0-37.0) g/dL RDW Std Deviation (28.0-62.0) fl RDW Coeff of Madeline (11.0-15.0) % Plt Count (150-400) K/uL MPV (7.40-12.00) fL Neut % (Auto) (48.0-80.0) % Lymph % (Auto) (16.0-40.0) % Schleicher % (Auto) (0.0-15.0) % Eos % (Auto) (0.0-7.0) % Baso % (Auto) (0.0-1.5) % Neut # (Auto) (1.4-5.7) K/uL Lymph # (Auto) (0.6-2.4) K/uL Schleicher # (Auto) (0.0-0.8) K/uL Eos # (Auto) (0.0-0.7) K/uL Baso # (Auto) (0.0-0.1) K/uL Nucleated RBC % /100WBC Nucleated RBCs # K/uL Sodium 139 (136-146) mmol/L Potassium 3.9 (3.5-5.1) mmol/L Chloride 106 (98-110) mmol/L Carbon Dioxide 23 (21-31) mmol/L BUN 16 (6.0-23.0) mg/dL Creatinine 1.1 (0.6-1.5) mg/dL Est Cr Clr Drug Dosing 49.12 mL/min Estimated GFR (MDRD) > 60.0 ml/min Glucose 118 H (60-110) mg/dL Calcium 8.2 L (8.8-10.8) mg/dL Magnesium 1.8 (1.5-2.3) mEq/L Urine Color Urine Appearance Urine pH (5.0-8.0) Ur Specific [place] (1.001-1.035) Urine Protein (NEGATIVE) mg/dL Urine Glucose (UA) (NEGATIVE) mg/dL Urine Ketones (NEGATIVE) mg/dL Urine Occult Blood (NEGATIVE) Urine Nitrite (NEGATIVE) Urine Bilirubin (NEGATIVE) Urine Urobilinogen (<2.0) EU/dL Ur Leukocyte Esterase (NEGATIVE) Urine RBC (0-2/HPF) Urine WBC (0-5/HPF) Ur Epithelial Cells (NONE-FEW) Amorphous Sediment (NEGATIVE) Urine Bacteria (NEGATIVE) Result Diagrams: 09/19/16 05:18 09/19/16 05:30 Consult PN Assessment/Plan Procedures: Procedures ASSAY OF LIPASE (03/22/14) ASSAY OF PSA TOTAL (08/14/16) ASSAY THYROID STIM HORMONE (07/02/16) COMPLETE CBC W/AUTO DIFF WBC (06/20/14) COMPREHEN METABOLIC PANEL (07/02/16) CT ABD & PELVIS W/O CONTRAST (03/22/14) CYSTOSCOPY AND TREATMENT (04/05/14) DESTRUCT B9 LESION 1-14 (11/30/14) ELECTROCARDIOGRAM TRACING (04/05/14) EMERGENCY DEPT VISIT (03/22/14) EXC S/N/H/F/G MAL+MRG 1.1-2 (05/30/15) EXTRACRANIAL BILAT STUDY (11/08/14) FLUOROSCOPE EXAMINATION (06/20/14) FRAGMENTING OF KIDNEY STONE (04/05/14) HYDRATE IV INFUSION ADD-ON (03/22/14) LIPID PANEL (07/02/16) METABOLIC PANEL TOTAL CA (06/20/14) OFFICE/OUTPATIENT VISIT EST (07/02/16) OFFICE/OUTPATIENT VISIT EST (05/22/15) OFFICE/OUTPATIENT VISIT EST (11/07/14) OFFICE/OUTPATIENT VISIT EST (04/18/14) OFFICE/OUTPATIENT VISIT EST (03/30/14) OFFICE/OUTPATIENT VISIT EST (09/28/13) OFFICE/OUTPATIENT VISIT NEW (11/30/14) PATH CONSULT INTRAOP 1 BLOC (05/30/15) PCV13 VACCINE IM (04/30/15) ROUTINE VENIPUNCTURE (08/14/16) THER/PROPH/DIAG INJ IV PUSH (03/22/14) TISSUE EXAM BY PATHOLOGIST (05/30/15) TTE W/DOPPLER COMPLETE (04/19/14) TX/PRO/DX INJ NEW DRUG ADDON (03/22/14) URINALYSIS AUTO W/SCOPE (03/22/14) X-RAY EXAM OF ABDOMEN (08/02/14) (1) Bleeding SNOMED Code(s): 439784374 Code(s): R58 - HEMORRHAGE, NOT ELSEWHERE CLASSIFIED Priority: High Current Visit: Yes (2) GI bleed requiring more than 4 units of blood in 24 hours, ICU, or surgery SNOMED Code(s): 88226975 Code(s): K92.2 - GASTROINTESTINAL HEMORRHAGE, UNSPECIFIED Priority: High Current Visit: Yes Problem List Initiated/Reviewed/Updated: Yes Plan: Patient is currently hemodynamically stable. He is receiving his third unit of anticipated 4 unit transfusion. I suspect the source of his black stools is a combination of aspirin and Plavix, and we'll encourage discontinuance of these medications. I think he would benefit from aggressive proton pump inhibitor and Carafate. I do not think he requires emergent esophagogastroduodenoscopy and think this could be done on an elective outpatient basis. I would be happy to see him back in my office in 3-4 weeks. Thank you for this consultation.
[2016-09-19] MEDS: atorvaSTATin 20 MG Tab PO SCH (20:31)
[2016-09-20 05:10] LABS: CHLORIDE,CL 109 mmol/L (98-110); SODIUM,NA 139 mmol/L (136-146)
[2016-09-20] MEDS: Docusate Sodium 100 MG Cap PO SCH ×2 (08:48→20:43)
[2016-09-20] MEDS: Levofloxacin/Dextrose 5%-Water 500 MG in Premix Bag 1 BAG IV SCH (08:48)
[2016-09-20] MEDS: Levothyroxine 75 MCG Tab PO SCH (08:48)
[2016-09-20] MEDS: Pantoprazole 80 MG in Sodium Chloride 0.9% 100 ML IV SCH ×2 (08:48→16:48)
[2016-09-20] MEDS: Folic Acid 1 MG Tab PO SCH (08:48)
--- NOTE | 2016-09-20 12:11 | PCM.PN ---
- General Info Date of Service: 09/20/16 Functional Status: Reports: tolerating diet - Review of Systems General: Reports: No Symptoms HEENT: Reports: no symptoms Pulmonary: Reports: no symptoms Cardiovascular: Reports: No Symptoms Gastrointestinal: Reports: No symptoms Genitourinary: Reports: no symptoms Musculoskeletal: Reports: no symptoms Skin: Reports: no symptoms Neurological: Reports: No Symptoms Psychiatric: Reports: no symptoms - Patient Data Vitals - most recent: Last Vital Signs Temp 36.7 C 09/20/16 08:00 Pulse 70 09/20/16 08:00 Resp 16 09/20/16 08:00 BP 118/65 09/20/16 08:00 Pulse Ox 95 09/20/16 08:00 Weight - most recent: 83.5 kg I&O - last 24 hours: Intake & Output 09/19/16 09/20/16 09/20/16 22:59 06:59 14:59 Intake Total 3378 600 Output Total 2040 1200 Balance 1338 -600 Lab Results last 24 hrs: Laboratory Results - last 24 hr 09/19/16 09/20/16 09/20/16 Range/Units 17:59 04:20 04:20 WBC 6.15 (4.0-11.0) K/uL RBC 3.16 L (4.50-5.90) M/uL Hgb 10.1 L 9.0 L (13.0-17.0) g/dL Hct 30.8 L 27.4 L (38.0-50.0) % MCV 86.7 (80.0-98.0) fL MCH 28.5 (27.0-32.0) pg MCHC 32.8 (31.0-37.0) g/dL RDW Std Deviation 48.5 (28.0-62.0) fl RDW Coeff of Madeline 15 (11.0-15.0) % Plt Count 226 (150-400) K/uL MPV 8.80 (7.40-12.00) fL Neut % (Auto) 62.5 (48.0-80.0) % Lymph % (Auto) 20.2 (16.0-40.0) % Amador % (Auto) 10.9 (0.0-15.0) % Eos % (Auto) 5.7 (0.0-7.0) % Baso % (Auto) 0.7 (0.0-1.5) % Neut # (Auto) 3.9 (1.4-5.7) K/uL Lymph # (Auto) 1.2 (0.6-2.4) K/uL Amador # (Auto) 0.7 (0.0-0.8) K/uL Eos # (Auto) 0.4 (0.0-0.7) K/uL Baso # (Auto) 0.0 (0.0-0.1) K/uL Nucleated RBC % 0.0 /100WBC Nucleated RBCs # 0 K/uL Sodium 139 (136-146) mmol/L Potassium 4.0 (3.5-5.1) mmol/L Chloride 109 (98-110) mmol/L Carbon Dioxide 23 (21-31) mmol/L BUN 13 (6.0-23.0) mg/dL Creatinine 1.0 (0.6-1.5) mg/dL Est Cr Clr Drug Dosing 54.03 mL/min Estimated GFR (MDRD) > 60.0 ml/min Glucose 90 (60-110) mg/dL Calcium 8.2 L (8.8-10.8) mg/dL Med Orders - Current: Current Medications Acetaminophen (Tylenol) 650 mg PO Q4H PRN PRN Reason: Pain (Mild 1-3)/fever Atorvastatin Calcium (Lipitor) 20 mg PO BEDTIME PENDING SALE TO [facility] Last Admin: 09/19/16 20:31 Dose: 20 mg Bisacodyl (Dulcolax) 5 mg PO DAILY PRN PRN Reason: Constipation Docusate Sodium (Colace) 100 mg PO BID PENDING SALE TO [facility] Last Admin: 09/20/16 08:48 Dose: 100 mg Folic Acid (Folic Acid) 1 mg PO DAILY PENDING SALE TO [facility] Last Admin: 09/20/16 08:48 Dose: 1 mg Pantoprazole Sodium 80 mg/ (Sodium Chloride) 100 mls @ 10 mls/hr IV Q10H PENDING SALE TO [facility] Last Admin: 09/20/16 08:48 Dose: 10 mls/hr Levofloxacin/Dextrose 500 mg/ (Premix) 100 mls @ 100 mls/hr IV Q24H PENDING SALE TO [facility] Last Admin: 09/20/16 08:48 Dose: 100 mls/hr Levothyroxine Sodium (Levothyroxine) 75 mcg PO ACBRK PENDING SALE TO [facility] Last Admin: 09/20/16 08:48 Dose: 75 mcg Ondansetron HCl (Zofran Odt) 4 mg PO Q4H PRN PRN Reason: nausea, able to take PO Temazepam (Restoril) 15 mg PO BEDTIME PRN PRN Reason: Sleep Discontinued Medications Calcium Carbonate/Glycine (Tums) 1,000 mg PO DAILY ONE Stop: 09/19/16 08:01 Last Admin: 09/19/16 09:19 Dose: 1,000 mg Furosemide (Lasix) 40 mg IVPUSH ONCALL ONE Stop: 09/18/16 14:45 Last Admin: 09/18/16 16:59 Dose: 40 mg Sodium Chloride (Normal Saline) 1,000 mls @ 999 mls/hr IV .Bolus ONE Stop: 09/18/16 13:17 Last Admin: 09/18/16 12:55 Dose: 750 mls/hr Pantoprazole Sodium 40 mg/ (Sodium Chloride) 10 mls @ 300 mls/hr IVPUSH NOW ONE Stop: 09/18/16 13:31 Last Admin: 09/18/16 15:30 Dose: 300 mls/hr Pantoprazole Sodium 80 mg/ (Sodium Chloride) 100 mls @ 10 mls/hr IV .Continuous TIM Morphine Sulfate (Morphine) 2 mg IVPUSH Q2H PRN PRN Reason: Pain (severe 7-10) Stop: 09/19/16 14:40 - Exam General: alert, other (very hard of hearing) HEENT: Pupils equal, Pupils reactive, EOMI, Mucous membr. moist/pink Neck: +2 carotid pulse wo bruit Lungs: Clear to auscultation, Normal respiratory effort Cardiovascular: Murmurs (musical mid systolic murmur low axilla) Abdomen: bowel sounds present (Male) Exam: Deferred Back Exam: normal inspection Extremities: no edema Skin: warm, dry, intact Wound/Incisions: no drainage Neurological: no new focal deficit Psy/Mental Status: alert, normal affect, normal mood Physical Findings Comments:: hemoglobin down 1 g since yesterday - Problem List Review Problem List Initiated/Reviewed/Updated: Yes - Plan Plan:: 81 male admitted 09/18/16 for GI bleed with Hgb of 5.5 with pmh of TIA on Plavix and aspirin, htn, hyperlipidemia, and hypothyroidism. GI bleed\Anemia: Hx of Melena for two days previous to admission. No BM overnight, feeling constipated. Transfused 2 units yesterday with good response Hgb 5.5 to 7.5. Still light headed will transfuse 2 more units this AM. On Protonix IV will cont. H-pylori was negative. Dr. Castro, surgery, called and consulted. Do not believe he has an active bleed at this time. Will cont. to monitor. UTI: UA was positive. He did have some right flank pain on physical this am. reports history of kidney stones. Started patient on Levaqin IV and will get CT abd/pelvis for possible stones. Hx of TIA: On plavix and aspirin which will be cont. secondary to high risk and no active bleeding. Hyperlipidemia: Stable Cont. home meds. Hypothyroidism: Stable cont. home meds. Will transfer to floor from ICU as patient has stabilized. VTE: On plavix and aspirin, GI bleed, SCD hold pharmacologic therapy. . Watch for further drop in h&h continue protonix
[2016-09-20] MEDS: atorvaSTATin 20 MG Tab PO SCH (20:43)
[2016-09-21] MEDS: Pantoprazole 80 MG in Sodium Chloride 0.9% 100 ML IV SCH ×2 (02:58→13:03)
[2016-09-21 05:33] LABS: CHLORIDE,CL 111 mmol/L (98-110); SODIUM,NA 139 mmol/L (136-146)
[2016-09-21] MEDS: Levothyroxine 75 MCG Tab PO SCH (06:43)
[2016-09-21] MEDS: Levofloxacin/Dextrose 5%-Water 500 MG in Premix Bag 1 BAG IV SCH (08:14)
[2016-09-21] MEDS: Folic Acid 1 MG Tab PO SCH (08:14)
[2016-09-21] MEDS: Docusate Sodium 100 MG Cap PO SCH (08:15)
[2016-09-21 12:08] VITALS: BP 130/60
--- NOTE | 2016-09-21 16:14 | PCM.DCSUM1 ---
Discharge Summary - Hospital Course Free Text/Narrative:: admitted with GI bleeding thought due to gastritis. Hemoglobin stabilized around 9g after transfusion of 4 units - Discharge Data Discharge Date: 09/21/16 Discharge Disposition: Home, Self-Care 01 Condition: Fair - Patient Summary/Data Operative Procedure(s) Performed: excision of right scalp keratoacanthoma - Patient Instructions Activity, Other: stop using tobacco Driving: May Drive Today - Discharge Plan Prescriptions/Med Rec: Iron,Carbonyl/Ascorbic Acid [Iron 100-Vitamin C Tablet] 1 each PO BID #60 tablet Pantoprazole [ProTONIX] 40 mg PO BIDAC #60 tab.cr Sucralfate [Carafate] 1 gm PO TIDAC #90 cup Home Medications: Home Meds Folic Acid 1 mg PO DAILY 10/24/13 [History] Hydrochlorothiazide 25 mg PO BEDTIME 10/24/13 [History] Ramipril [Altace] 5 mg PO BEDTIME 10/24/13 [History] atorvaSTATin [Lipitor] 20 mg PO BEDTIME 10/24/13 [History] Potassium Chloride 20 meq PO BRK 06/21/14 [History] Levothyroxine 75 mcg PO ACBREAKFAST 09/18/16 [History] Iron,Carbonyl/Ascorbic Acid [Iron 100-Vitamin C Tablet] 1 each PO BID #60 tablet 09/21/16 [Rx] Levothyroxine 75 mcg PO ACBRK tablet 09/21/16 [Rx] Pantoprazole [ProTONIX] 40 mg PO BIDAC #60 tab.cr 09/21/16 [Rx] Sucralfate [Carafate] 1 gm PO TIDAC #90 cup 09/21/16 [Rx] Referrals: Tong French MD [Physician] - - Discharge Summary/Plan Comment DC Time >30 min.: Yes - Patient Data Vitals - Most Recent: Last Vital Signs Temp 36.9 C 09/21/16 12:00 Pulse 69 09/21/16 12:00 Resp 12 09/21/16 12:00 BP 130/60 09/21/16 12:00 Pulse Ox 95 09/21/16 14:00 Weight - Most Recent: 83.5 kg I&O - Last 24 hours: Intake & Output 09/21/16 09/21/16 09/21/16 06:59 14:59 22:59 Intake Total 1480 100 Output Total 1600 Balance -120 100 Lab Results - Last 24 hrs: Laboratory Results - last 24 hr 09/21/16 09/21/16 Range/Units 05:00 05:00 WBC 6.23 (4.0-11.0) K/uL RBC 3.22 L (4.50-5.90) M/uL Hgb 9.2 L (13.0-17.0) g/dL Hct 28.2 L (38.0-50.0) % MCV 87.6 (80.0-98.0) fL MCH 28.6 (27.0-32.0) pg MCHC 32.6 (31.0-37.0) g/dL RDW Std Deviation 47.9 (28.0-62.0) fl RDW Coeff of Madeline 15 (11.0-15.0) % Plt Count 229 (150-400) K/uL MPV 8.80 (7.40-12.00) fL Neut % (Auto) 66.7 (48.0-80.0) % Lymph % (Auto) 17.7 (16.0-40.0) % Grant % (Auto) 9.3 (0.0-15.0) % Eos % (Auto) 5.5 (0.0-7.0) % Baso % (Auto) 0.8 (0.0-1.5) % Neut # (Auto) 4.2 (1.4-5.7) K/uL Lymph # (Auto) 1.1 (0.6-2.4) K/uL Grant # (Auto) 0.6 (0.0-0.8) K/uL Eos # (Auto) 0.3 (0.0-0.7) K/uL Baso # (Auto) 0.1 (0.0-0.1) K/uL Nucleated RBC % 0.0 /100WBC Nucleated RBCs # 0 K/uL Sodium 139 (136-146) mmol/L Potassium 4.2 (3.5-5.1) mmol/L Chloride 111 H (98-110) mmol/L Carbon Dioxide 21 (21-31) mmol/L BUN 12 (6.0-23.0) mg/dL Creatinine 1.0 (0.6-1.5) mg/dL Est Cr Clr Drug Dosing 54.03 mL/min Estimated GFR (MDRD) > 60.0 ml/min Glucose 86 (60-110) mg/dL Calcium 8.1 L (8.8-10.8) mg/dL NATO Results - Last 24 hrs: Microbiology 09/20/16 15:43 Stool Occult Blood (NATO) - Final Stool / Feces POSITIVE OCCULT BLOOD Med Orders - Current: Current Medications Acetaminophen (Tylenol) 650 mg PO Q4H PRN PRN Reason: Pain (Mild 1-3)/fever Atorvastatin Calcium (Lipitor) 20 mg PO BEDTIME ON LICENSE OF [facility] Last Admin: 09/20/16 20:43 Dose: 20 mg Bisacodyl (Dulcolax) 5 mg PO DAILY PRN PRN Reason: Constipation Docusate Sodium (Colace) 100 mg PO BID ON LICENSE OF [facility] Last Admin: 09/21/16 08:15 Dose: 100 mg Folic Acid (Folic Acid) 1 mg PO DAILY ON LICENSE OF [facility] Last Admin: 09/21/16 08:14 Dose: 1 mg Pantoprazole Sodium 80 mg/ (Sodium Chloride) 100 mls @ 10 mls/hr IV Q10H ON LICENSE OF [facility] Last Admin: 09/21/16 13:03 Dose: 10 mls/hr Levofloxacin/Dextrose 500 mg/ (Premix) 100 mls @ 100 mls/hr IV Q24H ON LICENSE OF [facility] Last Admin: 09/21/16 08:14 Dose: 100 mls/hr Levothyroxine Sodium (Levothyroxine) 75 mcg PO ACBRK ON LICENSE OF [facility] Last Admin: 09/21/16 06:43 Dose: 75 mcg Ondansetron HCl (Zofran Odt) 4 mg PO Q4H PRN PRN Reason: nausea, able to take PO Temazepam (Restoril) 15 mg PO BEDTIME PRN PRN Reason: Sleep Discontinued Medications Calcium Carbonate/Glycine (Tums) 1,000 mg PO DAILY ONE Stop: 09/19/16 08:01 Last Admin: 09/19/16 09:19 Dose: 1,000 mg Furosemide (Lasix) 40 mg IVPUSH ONCALL ONE Stop: 09/18/16 14:45 Last Admin: 09/18/16 16:59 Dose: 40 mg Sodium Chloride (Normal Saline) 1,000 mls @ 999 mls/hr IV .Bolus ONE Stop: 09/18/16 13:17 Last Admin: 09/18/16 12:55 Dose: 750 mls/hr Pantoprazole Sodium 40 mg/ (Sodium Chloride) 10 mls @ 300 mls/hr IVPUSH NOW ONE Stop: 09/18/16 13:31 Last Admin: 09/18/16 15:30 Dose: 300 mls/hr Pantoprazole Sodium 80 mg/ (Sodium Chloride) 100 mls @ 10 mls/hr IV .Continuous TIM Morphine Sulfate (Morphine) 2 mg IVPUSH Q2H PRN PRN Reason: Pain (severe 7-10) Stop: 09/19/16 14:40 *Q Meaningful Use (DIS) - VTE *Q VTE Criteria *Q: - Stroke *Q Stroke Criteria *Q: - AMI *Q AMI Criteria *Q:
== END 2016-09-21 16:50 | disposition home or self-care (01) | DRG 378 ==
LOC: MW.ED 11:36 → MW.ICU 13:31 → MW.MS 09-19 19:00
PROVIDERS: ADMIT Family Medicine; ATTEND Family Medicine
PROC: 30233N1 Transfusion of Nonautologous Red Blood Cells into Peripheral Vein, Percutaneous Approach (ICD-10-PCS; principal; 2016-09-18)
DX: K92.1 Melena (principal); N39.0 Urinary tract infection, site not specified; K92.2 Gastrointestinal hemorrhage, unspecified; D62 Acute posthemorrhagic anemia; E03.9 Hypothyroidism, unspecified; E78.00 Pure hypercholesterolemia, unspecified; F17.200 Nicotine dependence, unspecified, uncomplicated; I10 Essential (primary) hypertension; Z79.899 Other long term (current) drug therapy; Z79.01 Long term (current) use of anticoagulants; Z79.82 Long term (current) use of aspirin; Z86.73 Personal history of transient ischemic attack (TIA), and cerebral infarction without residual deficits
CPT/HCPCS: 36415; 36430; 80053; 82150; 83690; 85025; 85610; 86677; 86850; 86900; 86901; 86920 ×2; 86921 ×2; 86922 ×2; 93005; 96360; 99285; J7040; 71020; 71020-26; 74176; 74176-26; 80048; 81001; 82272; 83735; 85014; 85018; 85027; A9270-GY; C9113; J1940; J1956; J7030; P9016

== ENCOUNTER → 2016-09-30 | Outpatient (CLI) | payer MEDICARE, BC | LOC: MW.CHGS 08:00 | PROVIDERS: ATTEND Surgery | DX: D50.0 Iron deficiency anemia secondary to blood loss (chronic) (principal); K92.2 Gastrointestinal hemorrhage, unspecified | CPT/HCPCS: 99203 ==

== ENCOUNTER → 2016-10-01 | Outpatient (CLI) | payer MEDICARE, BC ==
[2016-10-01 11:58] LABS: CHLORIDE,CL 104 mmol/L (98-110); SODIUM,NA 137 mmol/L (136-146)
== END ==
LOC: MW.CHFP 11:04
PROVIDERS: ATTEND Family Medicine
DX: D50.0 Iron deficiency anemia secondary to blood loss (chronic) (principal); I10 Essential (primary) hypertension; R73.9 Hyperglycemia, unspecified
CPT/HCPCS: 36415; 80053; 83036; 85027; 99214

== ENCOUNTER → 2016-10-16 | Outpatient (CLI) | payer MEDICARE, BC | LOC: MW.CHRC 08:53 | PROVIDERS: ATTEND Family Medicine | DX: R94.31 Abnormal electrocardiogram [ECG] [EKG] (principal); R01.1 Cardiac murmur, unspecified; D50.0 Iron deficiency anemia secondary to blood loss (chronic); K92.2 Gastrointestinal hemorrhage, unspecified | CPT/HCPCS: 99214 ==

== ENCOUNTER → 2016-10-17 | Outpatient (CLI) | payer MEDICARE, BC ==
--- NOTE | 2016-10-19 16:42 | US ---
EXAM DATE: 10/17/16 PATIENT'S AGE: 81 Patient: FLY NATH Facility: [place], [place] Site . Site : [id number] Study: US Neck Angio [id number]/28/2017 11:24:23 AM Ordering Physician: Manolo Babb Final Report: HISTORY: Carotid bruit. Findings: Multiple grayscale static images from a bilateral ultrasound evaluated. Color and spectral Doppler was utilized. Comparison is made with prior examination 08 Nov 2014. Echogenic plaque seen in the right carotid bulb extending into the proximal right internal carotid artery. The peak systolic velocity of the distal right common carotid artery is 80 cm/second. The peak systolic velocity right internal carotid artery is 65 cm/second. The peak end-diastolic velocity is 20 cm/second. The right external carotid artery is patent. The right vertebral artery demonstrates antegrade flow. The right ICA/CCA ratio 0.82. Echogenic plaque is seen within the left carotid bulb. The peak systolic velocity of the distal left common carotid artery is 82 cm/second. The peak systolic velocity left internal carotid artery is 78 cm/second. The peak end- diastolic velocity is 26 cm/second. The left external carotid artery is patent. The left vertebral artery demonstrates antegrade flow. The left ICA/CCA ratio is 0.94. Impression: 1. The Doppler waveforms within the right and left internal carotid arteries are compatible with less than 50 percent stenosis. There is similar to prior exam. 2. Antegrade flow within both vertebral arteries. Dictated by No Delgado MD @ Oct 17 2016 7:29PM (Electronic Signature) Report Signed by Proxy. LATOYA
--- NOTE | 2016-10-21 17:17 | ECHO ---
The echocardiogram report can be seen in this patient's EMR in the Reports section MTDD
== END ==
LOC: MW.US 10:31
PROVIDERS: ATTEND Family Medicine
DX: R01.1 Cardiac murmur, unspecified (principal); R94.31 Abnormal electrocardiogram [ECG] [EKG]; R09.89 Other specified symptoms and signs involving the circulatory and respiratory systems; I25.10 Atherosclerotic heart disease of native coronary artery without angina pectoris
CPT/HCPCS: 93306; 93880; 93880-26

== ENCOUNTER → 2016-10-23 | Outpatient (CLI) | payer MEDICARE, BC | LOC: MW.CHIM 08:00 | PROVIDERS: ATTEND Internal Medicine | DX: R94.31 Abnormal electrocardiogram [ECG] [EKG] (principal); I10 Essential (primary) hypertension; I25.10 Atherosclerotic heart disease of native coronary artery without angina pectoris; E78.00 Pure hypercholesterolemia, unspecified | CPT/HCPCS: 99204 ==

== ENCOUNTER → 2016-10-28 | Outpatient (CLI) | payer MEDICARE, BC | LOC: MW.CHGS 08:00 | PROVIDERS: ATTEND Surgery | DX: K92.2 Gastrointestinal hemorrhage, unspecified (principal) | CPT/HCPCS: G0463 ==

== ENCOUNTER 2016-11-12 09:50 | Day surgery (SDC) | payer MEDICARE, BC ==
[~2016-11-12 09:50] MED LIST: Lactated Ringers 1,000 ML IV SCH; Propofol 200 MG/20 ML SDV ONE; Sodium Chloride 0.9% 10 ML Syringe FLUSH PRN; Sodium Chloride 0.9% 2.5 ML Syringe FLUSH PRN; fentaNYL 100 MCG/2 ML SDV ONE
[2016-11-12] MEDS ORDERED: Lidocaine 4% Top Soln 50 ML Bottle ONE (10:05)
--- NOTE | 2016-11-12 10:44 | PCM.PREANE ---
Preanesthetic Assessment - Anesthesia/Transfusion/Family Hx Anesthesia History: Prior Anesthesia Without Reaction Other Type of Anesthesia Reaction Comment: DENIES ANY PROBLEMS WITH ANESTHESIA Family History of Anesthesia Reaction: No Transfusion History: Prior Transfusion Without Reaction Intubation History: Unknown (occasional TMJ lock-out) - Review of Systems General: No Symptoms Pulmonary: No Symptoms Cardiovascular: No Symptoms Neurological: No Symptoms Other: Reports: None - Physical Assessment NPO Status Date: 11/11/16 NPO Status Time: 22:00 O2 Sat by Pulse Oximetry: 96 Respiratory Rate: 16 Vital Signs: Last Vital Signs Temp 36.2 C 11/12/16 10:05 Pulse 66 11/12/16 10:05 Resp 16 11/12/16 10:05 BP 150/72 H 11/12/16 10:05 Pulse Ox 96 11/12/16 10:05 Height: 1.65 m Weight: 87.997 kg ASA Class: 3 Mental Status: Alert & Oriented x3 Airway Class: Mallampati = 2 Dentition: Reports: Partial Thyro-Mental Finger Breadths: 3 Mouth Opening Finger Breadths: 2 ROM/Head Extension: Limited/Partial Lungs: Clear to auscultation, Normal respiratory effort Cardiovascular: Regular Rate, Regular Rhythm, Murmurs (sistolic aortic) - Allergies Allergies/Adverse Reactions: Allergies Allergy/AdvReac Type Severity Reaction Status Date / Time No Known Allergies Allergy Verified 11/07/16 13:01 - Blood Blood Available: No - Anesthesia Plan Pre-Op Medication Ordered: None - Acknowledgements Anesthesia Type Planned: MAC Pt an Appropriate Candidate for the Planned Anesthesia: Yes Alternatives and Risks of Anesthesia Discussed w Pt/Guardian: Yes Pt/Guardian Understands and Agrees with Anesthesia Plan: Yes PreAnesthesia Questionnaire HEENT History: Reports: Hard of Hearing Other HEENT History: wears flasses, has lower removable partial denture, has bilateral heariing aides Cardiovascular History: Reports: CAD, Heart Murmur, High Cholesterol, Hypertension, Other (See Below) (moderate/severe aortic stenosis) Respiratory History: Reports: None Gastrointestinal History: Reports: GERD, GI Bleed (requiring transfusion) Genitourinary History: Reports: Renal Calculus Musculoskeletal History: Reports: Arthritis Neurological History: Reports: TIA Other Neuro History: has had multiple TIA's but none for several years, no residual Psychiatric History: Reports: None Endocrine/Metabolic History: Reports: Hypothyroidism, Obesity/BMI 30+ Hematologic History: Reports: Anemia, Blood Transfusion(s) Other Hematologic History: transfusion 3 weeks ago for hgb of 7.5 (5 units) Immunologic History: Reports: None Oncologic (Cancer) History: Reports: None Dermatologic History: Reports: None Other Dermatologic History: occasional rash, keratoacanthoma of hinduism region - Infectious Disease History Infectious Disease History: Reports: Chicken Pox, Measles, Shingles - Past Surgical History Head Surgeries/Procedures: Reports: None HEENT Surgical History: Reports: None Cardiovascular Surgical History: Reports: None Respiratory Surgical History: Reports: None GI Surgical History: Reports: None Male Surgical History: Reports: Prostatectomy, Ureteral Stent Other Male Surgeries/Procedures: hx ureterostomy for insertion of stent, prostate surgery Endocrine Surgical History: Reports: None Neurological Surgical History: Reports: None Musculoskeletal Surgical History: Reports: Amputation Other Musculoskeletal Surgeries/Procedures:: hx of amputation of half of right foot Oncologic Surgical History: Reports: None Dermatological Surgical History: Reports: Other (See Below) (exc. of skin lesions) - SUBSTANCE USE Smoking Status *Q: Current Every Day Smoker Tobacco Use Within Last Twelve Months: Smokeless Tobacco Other Tobacco Use Within Last Twelve Months: chew Second Hand Smoke Exposure: No Days Per Week of Alcohol Use: 0 Number of Drinks Per Day: 0 Total Drinks Per Week: 0 Recreational Drug Use History: No - HOME MEDS Home Medications: Home Meds Folic Acid 2 mg PO DAILY 10/24/13 [History] Hydrochlorothiazide 25 mg PO DAILY 10/24/13 [History] Ramipril [Altace] 5 mg PO DAILY 10/24/13 [History] atorvaSTATin [Lipitor] 20 mg PO BEDTIME 10/24/13 [History] Potassium Chloride 20 meq PO BRK 06/21/14 [History] Levothyroxine 75 mcg PO ACBRK tablet 09/21/16 [Rx] Pantoprazole [ProTONIX] 40 mg PO BIDAC #60 tab.cr 09/21/16 [Rx] Ascorbate Calcium [Vitamin C] 500 mg PO BID 10/10/16 [History] Ferrous Sulfate 325 mg PO DAILY 10/10/16 [History] - CURRENT (IN HOUSE) MEDS Current Meds: Current Medications Lactated Ringer's (Ringers, Lactated) 1,000 mls @ 125 mls/hr IV ASDIRECTED TIM Last Admin: 11/12/16 10:08 Dose: 125 mls/hr Sodium Chloride (Saline Flush) 10 ml FLUSH ASDIRECTED PRN PRN Reason: Keep Vein Open Sodium Chloride (Saline Flush) 2.5 ml FLUSH ASDIRECTED PRN PRN Reason: Keep Vein Open Discontinued Medications Fentanyl (Sublimaze) Confirm Administered Dose 100 mcg .ROUTE .STK-MED ONE Stop: 11/12/16 06:52 Lidocaine HCl (Xylocaine 4% Top Soln) Confirm Administered Dose 50 ml .ROUTE .STK-MED ONE Stop: 11/12/16 10:06 Propofol (Diprivan 20 Ml) Confirm Administered Dose 400 mg .ROUTE .STK-MED ONE Stop: 11/12/16 06:52
[2016-11-12] MEDS ORDERED: ePHEDrine 50 MG/ML SDV ONE (11:45)
--- NOTE | 2016-11-12 12:16 | PCM.OPNOTE ---
- General Post-Op/Procedure Note Date of Surgery/Procedure: 11/12/16 Operative Procedure(s): Diagnostic EGd and Colonoscopy Findings: Small hiatal hernia, gastric hyperplastic polyp, sigmoid colon polyp Pre Op Diagnosis: GI bleed Post-Op Diagnosis: Small hiatal hernia, gastric hyperplastic polyp, sigmoid colon polyp [place] [facility] [place] Surgeon: Zulema Huang Condition: Good
[2016-11-12 12:35] VITALS: BP 124/64
--- NOTE | 2016-11-12 12:37 | PCM.POSTAN ---
POST ANESTHESIA ASSESSMENT - MENTAL STATUS Mental Status: alert, oriented - RESPIRATORY Respiratory Status: respiratory rate WNL, airway patent, O2 saturation stable - CARDIOVASCULAR CV Status: pulse rate WNL, blood pressure stable - GASTROINTESTINAL GI Status: no symptoms - POST OP HYDRATION Hydration Status: adequate & stable - OBSERVATIONS Free Text/Narrative:: no anesthesia problems
--- NOTE | 2016-11-12 14:43 | OR ---
SURGEON: HELENE PERRY MD DATE OF PROCEDURE: 11/12/2016 PREOPERATIVE DIAGNOSIS: Gastrointestinal bleed. POSTOPERATIVE DIAGNOSIS: Sigmoid polyp. PROCEDURE PERFORMED: Diagnostic esophagogastroduodenoscopy and colonoscopy. INSTRUMENT USED: Olympus endoscope and colonoscope. ANESTHESIA: MAC. EXTENT OF EXAM: To the second portion of the duodenum during the EGD, to the cecum during the colonoscopic portion. PREPARATION: Good. LIMITATIONS: None. INDICATIONS FOR EXAMINATION: The patient is an 81-year-old male, who was hospitalized several months ago with hematochezia and anemia. He was given blood transfusion and was started on a PPI. After the PPI, the bleeding stopped. He has been on long-term PPI therapy now and has had no more episodes of hematochezia. The patient and I discussed the need to perform a diagnostic EGD and colonoscopy to look for any source of bleeding. The patient and I discussed the procedure as well as expected perioperative course. We discussed the risks, including bleeding, infection, or damage to surrounding structures, including perforation. The patient verbalized understanding and wishes to proceed. PROCEDURE IN DETAIL: The patient was brought into the endoscopy suite and placed in the beach chair position. A time-out was completed verifying the patient's name, age, date of , allergies, and procedure to be performed. A bite block was placed in the patient's mouth and monitored anesthesia care was induced. Continuous oxygen was provided via nasal cannula throughout the procedure. After adequate sedation was achieved, the Olympus endoscope was placed over the patient's tongue and advanced under direct visualization to the level of the second portion of the duodenum. Photograph was taken at this level. The duodenal mucosa all appeared normal. The scope was then brought into the stomach and a photograph was taken of the pylorus as well as the esophageal hiatus. The patient appeared to have a very small hiatal hernia. The gastric mucosa was inspected and appeared normal other than one or two small hyperplastic appearing polyps. One of these polyps was biopsied and sent to pathology. Biopsies were taken of the gastric body, antrum, and fundus and sent for H. pylori testing. The scope was then brought into the esophagus and a photograph was taken of the GE junction, which appeared normal. The scope was then slowly pulled back while examining the remainder of the esophagus. This all appeared normal and the scope was removed from the patient. This portion of procedure was then terminated. The patient was then placed in the left lateral decubitus position. A digital rectal exam was performed. The patient had several skin tags around his anus, but no gross hemorrhoidal disease. A well lubricated colonoscope was inserted into the rectum and advanced under direct visualization to the level of the cecum. The cecum was identified by both visual and anatomic landmarks. A photograph was taken of the cecal cap. I was unable to retroflex the scope within the cecum due to looping of the scope more proximally. The scope was then fully withdrawn while examining the color, texture, anatomy, and integrity of the mucosa from the cecum to the anal canal. A small 1 mm sessile polyp was noted in the distal sigmoid colon. This was removed via cold biopsy forceps. The scope was then brought into the rectum and retroflexed to allow visualization of the anal canal opening. This appeared normal and a photograph was taken. The scope was straightened out and removed from the patient. Cecum to anus time was 15 minutes. The patient was then transferred to recovery room in stable condition. ENDOSCOPIC DIAGNOSES: Small hiatal hernia, gastric polyp, and one sigmoid colon polyp. RECOMMENDATIONS: Follow up in clinic in 2 weeks. ANURAG JAQUEZ /[id number]
== END 2016-11-12 12:45 | disposition home or self-care (01) ==
LOC: MW.SDS 09:50
PROVIDERS: ATTEND Surgery
DX: D12.5 Benign neoplasm of sigmoid colon (principal); K31.7 Polyp of stomach and duodenum; K29.50 Unspecified chronic gastritis without bleeding; D50.0 Iron deficiency anemia secondary to blood loss (chronic); K44.9 Diaphragmatic hernia without obstruction or gangrene; E03.9 Hypothyroidism, unspecified; I10 Essential (primary) hypertension; I25.10 Atherosclerotic heart disease of native coronary artery without angina pectoris; E87.6 Hypokalemia; E78.00 Pure hypercholesterolemia, unspecified; N28.9 Disorder of kidney and ureter, unspecified; Z98.890 Other specified postprocedural states; Z86.73 Personal history of transient ischemic attack (TIA), and cerebral infarction without residual deficits; Z87.442 Personal history of urinary calculi; Z86.03 Personal history of neoplasm of uncertain behavior; Z79.899 Other long term (current) drug therapy
CPT/HCPCS: 43239; 45380; J3010; J7120; 00740; 88305; 88312; A9270-GY; J2704

== ENCOUNTER 2018-02-20 13:09 | Emergency (ER) | payer MEDICARE, BC ==
--- NOTE | 2018-02-20 13:20 | EDM.PDOC ---
ED HPI GENERAL MEDICAL PROBLEM - General Chief Complaint: ENT Problem Stated Complaint: PT JAW IS LOCK Time Seen by Provider: 02/20/18 13:12 - History of Present Illness INITIAL COMMENTS - FREE TEXT/NARRATIVE: HISTORY AND PHYSICAL: History of present illness: Patient's a 83-year-old white male who presents with a concern of subluxation of his mandible had this happen several times prior he denies any other trauma concern this occurred when he was yawning Review of systems: As per history of present illness and below otherwise all systems reviewed and negative. Past medical history: As per history of present illness and as reviewed below otherwise noncontributory. Surgical history: As per history of present illness and as reviewed below otherwise noncontributory. Social history: No reported history of drug or alcohol abuse. Family history: As per history of present illness and as reviewed below otherwise noncontributory. Physical exam: HEENT: Atraumatic, normocephalic, pupils reactive, negative for conjunctival pallor or scleral icterus, mucous membranes moist, throat clear, neck supple, nontender, trachea midline. Lungs: Clear to auscultation, breath sounds equal bilaterally, chest nontender. Heart: S1S2, regular, negative for clicks, rubs, or JVD. Abdomen: Soft, nondistended, nontender. Negative for masses or hepatosplenomegaly. Negative for costovertebral tenderness. Pelvis: Stable nontender. Genitourinary: Deferred. Rectal: Deferred. Extremities: Right forefoot amputation noted, negative for cords or calf pain. Neurovascular unremarkable. Neuro: Awake, alert, oriented. Cranial nerves II through XII unremarkable. Cerebellum unremarkable. Motor and sensory unremarkable throughout. Exam nonfocal. Diagnostics: None Therapeutics: Patient's subluxed mandible was reduced easily and successfully he has full range of motion and no complaints status post. Impression: #1 mandibular subluxation status post reduction Definitive disposition and diagnosis as appropriate pending reevaluation and review of above. - Related Data Allergies Allergy/AdvReac Type Severity Reaction Status Date / Time No Known Allergies Allergy Verified 11/07/16 13:01 Home Meds: Home Meds Folic Acid 2 mg PO DAILY 10/24/13 [History] Ramipril [Altace] 5 mg PO DAILY 10/24/13 [History] atorvaSTATin [Lipitor] 20 mg PO BEDTIME 10/24/13 [History] hydroCHLOROthiazide [Hydrochlorothiazide] 25 mg PO DAILY 10/24/13 [History] Potassium Chloride 20 meq PO BRK 06/21/14 [History] Levothyroxine 75 mcg PO ACBRK tablet 09/21/16 [Rx] Pantoprazole [ProTONIX] 40 mg PO BIDAC #60 tab.cr 09/21/16 [Rx] Ascorbate Calcium [Vitamin C] 500 mg PO BID 10/10/16 [History] Ferrous Sulfate 325 mg PO DAILY 10/10/16 [History] Past Medical History HEENT History: Reports: Hard of Hearing Other HEENT History: wears flasses, has lower removable partial denture, has bilateral heariing aides Cardiovascular History: Reports: CAD, Heart Murmur, High Cholesterol, Hypertension, Other (See Below) (moderate/severe aortic stenosis) Respiratory History: Reports: None Gastrointestinal History: Reports: GERD, GI Bleed (requiring transfusion) Genitourinary History: Reports: Renal Calculus Musculoskeletal History: Reports: Arthritis Neurological History: Reports: TIA Other Neuro History: has had multiple TIA's but none for several years, no residual Psychiatric History: Reports: None Endocrine/Metabolic History: Reports: Hypothyroidism, Obesity/BMI 30+ Hematologic History: Reports: Anemia, Blood Transfusion(s) Other Hematologic History: transfusion 3 weeks ago for hgb of 7.5 (5 units) Immunologic History: Reports: None Oncologic (Cancer) History: Reports: None Dermatologic History: Reports: None Other Dermatologic History: occasional rash, keratoacanthoma of sikhism region - Infectious Disease History Infectious Disease History: Reports: Chicken Pox, Measles, Shingles - Past Surgical History Head Surgeries/Procedures: Reports: None HEENT Surgical History: Reports: None Cardiovascular Surgical History: Reports: None Respiratory Surgical History: Reports: None GI Surgical History: Reports: None Male Surgical History: Reports: Prostatectomy, Ureteral Stent Other Male Surgeries/Procedures: hx ureterostomy for insertion of stent, prostate surgery Endocrine Surgical History: Reports: None Neurological Surgical History: Reports: None Musculoskeletal Surgical History: Reports: Amputation Other Musculoskeletal Surgeries/Procedures:: hx of amputation of half of right foot Oncologic Surgical History: Reports: None Dermatological Surgical History: Reports: Other (See Below) (exc. of skin lesions) Social & Family History - Family History Family Medical History: Noncontributory - Caffeine Use Caffeine Use: Reports: Coffee, Soda ED ROS GENERAL - Review of Systems Review Of Systems: ROS reveals no pertinent complaints other than HPI. ED EXAM, GENERAL - Physical Exam Exam: See Below (See dictation) Departure - Departure Time of Disposition: 13:19 Disposition: Home, Self-Care 01 Condition: Good Clinical Impression: Dislocated mandible - Discharge Information *PRESCRIPTION DRUG MONITORING PROGRAM REVIEWED*: Not Applicable *COPY OF PRESCRIPTION DRUG MONITORING REPORT IN PATIENT ABDULLAHI: Not Applicable Referrals: Tong French MD [Primary Care Provider] - Additional Instructions: The following information is given to patients seen in the emergency department who are being discharged to home. This information is to outline your options for follow-up care. We provide all patients seen in our emergency department with a follow-up referral. The need for follow-up, as well as the timing and circumstances, are variable depending upon the specifics of your emergency department visit. If you don't have a primary care physician on staff, we will provide you with a referral. We always advise you to contact your personal physician following an emergency department visit to inform them of the circumstance of the visit and for follow-up with them and/or the need for any referrals to a consulting specialist. The emergency department will also refer you to a specialist when appropriate. This referral assures that you have the opportunity for followup care with a specialist. All of these measure are taken in an effort to provide you with optimal care, which includes your followup. Under all circumstances we always encourage you to contact your private physician who remains a resource for coordinating your care. When calling for followup care, please make the office aware that this follow-up is from your recent emergency room visit. If for any reason you are refused follow-up, please contact the [facility] emergency department at and asked to speak to the emergency department charge nurse. Follow-up primary medical doctor as needed as discussed return as needed as discussed
== END 2018-02-20 13:28 | disposition home or self-care (01) ==
LOC: MW.ED 13:09
DX: S03.00XA Dislocation of jaw, unspecified side, initial encounter (principal); I10 Essential (primary) hypertension; K21.9 Gastro-esophageal reflux disease without esophagitis; Z79.899 Other long term (current) drug therapy; X58.XXXA Exposure to other specified factors, initial encounter
CPT/HCPCS: 99283

== ENCOUNTER 2018-02-22 21:31 | Emergency (ER) | payer MEDICARE, BC | END 2018-02-22 21:55 | disposition left against medical advice (07) | LOC: MW.ED 21:31 | DX: Z53.21 Procedure and treatment not carried out due to patient leaving prior to being seen by health care provider (principal) ==